=== PATIENT | female | born 1980 | race Caucasian/White ===

== ENCOUNTER 2024-09-21 08:57 | Emergency (ER) | payer OTHER ==
[2024-09-21] MEDS: EPINEPHrine 1 MG/1 ML Amp IV ONE (08:58)
[2024-09-21] MEDS: methylPREDNISolone Sodium Succinate 125 MG/2 ML SDV IVPUSH ONE (08:58)
[2024-09-21] MEDS: diphenhydrAMINE 50 MG/ML SDV IVPUSH ONE (09:06)
[2024-09-21] MEDS: Albuterol 0.083% 2.5 MG/3 ML Neb Soln NEB ONE (09:06)
[2024-09-21] MEDS: Racepinephrine 2.25% 0.5 ML Neb Soln ONE (09:08)
[2024-09-21] MEDS ORDERED: Sodium Chloride 0.9% Inhalation Soln 5 ML Neb INH PRN (09:20)
[2024-09-21] MEDS ORDERED: Sodium Chloride 0.9% 10 ML Syringe FLUSH PRN (09:29)
[2024-09-21 09:42] LABS: EOSINOPHILS PERCENT AUTO 0.2 % (0.0-4.0); HEMATOCRIT 38.1 % (33.0-47.0); HEMOGLOBIN 12.8 g/dL (12.0-16.0); LYMPHOCYTES ABSOLUTE AUTO 1.8 x10^3/uL (1.0-4.8); LYMPHOCYTES PERCENT AUTO 40.7 % (25.0-50.0); MEAN CORPUSCULAR HEMOGLOBIN 30.4 pg (26.0-32.0); MEAN CORPUSCULAR HGB CONC 33.6 g/dL (32.0-36.0); MEAN CORPUSCULAR VOLUME 90.5 fL (78.0-93.0); MONOCYTES ABSOLUTE AUTO 0.3 x10^3/uL (0.0-0.8); MONOCYTES PERCENT AUTO 6.7 % (2.0-11.0); NEUTROPHILS ABSOLUTE AUTO 2.3 x10^3/uL (1.8-7.7); NEUTROPHILS PERCENT AUTO 52.4 % (50.0-80.0); PLATELET COUNT,PLT 173 x10^3/uL (130-400); RED BLOOD CELL COUNT 4.21 x10^6/uL (4.00-5.50); WHITE BLOOD CELL COUNT,WBC 4.4 x10^3/uL (4.0-10.0)
[2024-09-21 09:59] LABS: A/G RATIO 1.03; ALANINE AMINOTRANSFERASE,ALT 22 U/L (14-59); ALBUMIN 3.7 g/dL (3.4-5.0); ALKALINE PHOSPHATASE 47 U/L (46-116); ASPARTATE AMNIOTRANSFERASE,AST 17 U/L (15-37); BILIRUBIN TOTAL 0.9 mg/dL (0.2-1.0); BLOOD UREA NITROGEN,BUN 15 mg/dL (7-18); CALCIUM 8.8 mg/dL (8.5-10.1); CARBON DIOXIDE,CO2 24 mmol/L (21-32); CHLORIDE,CL 105 mmol/L (98-107); CREATININE 1.2 mg/dL (0.55-1.02); GLUCOSE RANDOM 187 mg/dL (70-99); POTASSIUM,K 3.3 mmol/L (3.5-5.1); PROTEIN TOTAL,TP 7.3 g/dL (6.4-8.2); SODIUM,NA 142 mmol/L (136-145)
[2024-09-21] MEDS: EPINEPHrine 1 MG/1 ML Amp ONE (10:00)
[2024-09-21 10:02] LABS: ANION GAP 16.3 mmol/L (5-15); C-REACTIVE PROTEIN < 0.50 mg/dL (<=0.50); ESTIMATED GFR 57 mL/min (>=60)
[2024-09-21] MEDS: Racepinephrine 2.25% 0.5 ML Neb Soln NEB ONE (10:12)
[2024-09-21] MEDS: Potassium Chloride 20 MEQ Tab.ER PO ONE (10:38)
== END 2024-09-21 10:46 ==
LOC: VM.ED 08:57
DX: T78.2XXA Anaphylactic shock, unspecified, initial encounter (principal); R06.03 Acute respiratory distress
CPT/HCPCS: 36415; 71045; 80053; 85025; 86140; 94640; 96374; 96375; 99285; A9270; J0171; J1200; J2919; 99284; J3490; J7613-GY